=== PATIENT | male | born 1975 | race Hispanic/Latino ===

== ENCOUNTER 2017-09-07 18:36 | Inpatient (IN) | payer BC ==
[2017-09-07 19:09] LABS: #Basophils 0.1 thou/uL (0.0-0.2); #Eosinphils 0.1 thou/uL (0.0-0.7); #Monocytes 0.7 thou/uL (0.11-0.59); #Neutrophils 9.5 thou/uL (1.40-6.50); %Basophils 0.8 % (0.0-1.0); %Lymphocytes 16.1 % (21.0-51.0); %Monocytes 5.5 % (0.0-10.0); %Neutrophils 76.6 % (42.0-75.0); Hemoglobin 15.1 g/dL (14.0-18.0); Mean Corpuscular HGB CONC 33.4 g/dL (32.0-36.0); Mean Corpuscular Hemoglobin 31.5 pg (27.0-31.0); Mean Corpuscular Volume 94.2 fl (80.0-94.0); Mean Platelet Volume 8.6 fL (7.4-10.4); Platelet Count 212 thou/uL (130-400); White Blood Cell (WBC) Count 12.4 thou/uL (4.8-10.8)
[2017-09-07] MEDS ORDERED: Ondansetron HCl/PF 4 MG/2 ML Vial ONE (19:23)
[2017-09-07 19:36] LABS: ALT (SGPT) 25 U/L (8-55); AST (SGOT) 18 U/L (5-34); Albumin 4.1 g/dL (3.5-5.0); Alkaline Phosphatase 77 U/L (40-150); Anion Gap 14 mmol/L (10-20); BUN (Urea Nitrogen) 16 mg/dL (8.9-20.6); Bilirubin, Total 0.6 mg/dL (0.2-1.2); Calc. Creatinine Clearance 0 mL/min (70-130); Calcium 8.9 mg/dL (7.8-10.44); Carbon Dioxide 22 mmol/L (22-29); Chloride 108 mmol/L (98-107); Estimated GFR-MDRD 90; Globulin 3.3 g/dL (2.4-3.5); Glucose 111 mg/dL (70-105); Lipase 8 U/L (8-78); Potassium 4.1 mmol/L (3.5-5.1); Protein, Total 7.4 g/dL (6.0-8.3); Sodium 140 mmol/L (136-145)
[2017-09-07] MEDS ORDERED: Meropenem 1 GM in Sterile Water 20 ML SLOW IVP SCH (20:30)
[2017-09-07 21:25] LABS: Bilirubin Negative (Negative); Blood, Urine Negative (Negative); Clarity TURBID (Clear); Glucose, Urine (Dipstick) Negative (Negative); Leukocyte Negative (Negative); Nitrite Negative (Negative); Protein, Urine (Dipstick) Trace mg/dL (Neg-Trace); Specific Gravity, Urine 1.035 (1.002-1.036); pH, Urine 5.5 (5.0-9.0)
[2017-09-07] MEDS ORDERED: Morphine 2 MG/ML SYRINGE SLOW IVP PRN (21:47)
[2017-09-07] MEDS ORDERED: Ondansetron HCl/PF 4 MG/2 ML Vial IVP PRN ×2 (21:48→22:20)
[2017-09-07 21:53] VITALS: BMI 40.6
--- NOTE | 2017-09-07 22:13 | ULT ---
GALLBLADDER ULTRASOUND 09/07/17 COMPARISON: Reference made to 02/26/04 gallbladder ultrasound exam. CLINICAL INDICATION: Right upper abdominal pain. FINDINGS: There is increased echogenicity of the liver. Hepatic parenchyma is coarsened in echotexture although incompletely penetrated which does limit evaluation. There are foci of increased echogenicity of the gallbladder lumen. Findings indicate cholelithiasis and superimposed gallbladder sludge. Gallbladder wall is thickened at 4 mm. Pericholecystic edema is evident. Kiran's sign report is positive by the trolley operator. Common duct is dilated at 7 mm. IMPRESSION: Evidence of cholelithiasis and acute cholecystitis. Correlate with surgical consultation for further evaluation. There is prominence of the common duct. Recommend correlation with biliary laboratory values to exclu de associated biliary ductal obstruction. Incomplete assessment of the liver as discussed above. POS: Jimmie
[2017-09-07] MEDS: D5 1/2 NS w/20 mEq KCL 1,000 ML IV SCH (23:47)
--- NOTE | 2017-09-08 03:36 | HP ---
CHIEF COMPLAINT: Abdominal pain. HISTORY: Mr. Chino is a 41-year-old man. He reports epigastric abdominal pain radiating across h is right side since early this morning around 6:00. He has had nausea and vomiting as well and has h ad some hot flashes, but no documented fevers. He came to the emergency room because the pain was no t getting any better and had reached 10/10. He has not eaten anything since yesterday, since the true sea was too severe. The pain is made worse by ambulating, coughing, or taking a deep breath. PAST MEDICAL HISTORY: None. PAST SURGICAL HISTORY: Repair of a laceration on his hand. MEDICATIONS: None. No outpatient medications. ALLERGIES: No known drug allergies. PHYSICAL EXAMINATION: VITAL SIGNS: Patient is afebrile, heart rate 59, respirations 24, blood pressure 160/113, 100% satur ated on room air. GENERAL: Reveals a healthy-appearing man in discomfort. He is not toxic in appearance. He is not f lushed. He is not jaundiced or icteric. HEENT: Unremarkable. NECK: Supple without lymphadenopathy or thyroid nodules. HEART: Regular in its rate and rhythm without murmurs, rubs, or gallops. LUNGS: Clear to auscultation bilaterally. ABDOMEN: He is quite tender to palpation in the right upper quadrant greater than left upper quadran t. He does not exhibit rigidity, rebound, or guarding. No palpable masses or hernias. EXTREMITIES: Warm and well perfused without edema. NEUROLOGIC: No focal deficits. PSYCHIATRIC: Alert, oriented, and appropriate. LABORATORY AND X-RAY FINDINGS: White count is elevated at 12.4. LFTs are normal and electrolytes ar e unremarkable. Lipase is normal. Gallbladder ultrasound reveals a normal caliber bile duct, but a thickened wall of the gallbladder with pericholecystic fluid and gallstones. ASSESSMENT: Cholelithiasis and acute cholecystitis. PLAN: Patient will be admitted overnight for IV antibiotics and pain relief. He has been placed on the operating room schedule for early tomorrow morning for a laparoscopic cholecystectomy or recheck labs in the morning and if shows LFTs are elevated, cholangiogram will be recommended as well. We wi ll keep him n.p.o. His nausea is controlled, but his pain control is still suboptimal and I have ask ed his nurse to administer additional pain medication. The procedure of laparoscopic cholecystectomy was discussed with the patient and the family, inherent risks were discussed as well. These include but are not limited to bleeding, infection, risks of anesthesia, damage to nearby structures includi ng bowel, liver and bile duct, need for open operation or other surgery. He understands and accepts these risks and wishes to proceed. All of his questions were answered.
[2017-09-08] MEDS: Meropenem 1 GM in Sterile Water 20 ML SLOW IVP SCH ×2 (04:55→14:35)
[2017-09-08] MEDS: D5 1/2 NS w/20 mEq KCL 1,000 ML IV SCH ×2 (04:59→17:05)
[2017-09-08] MEDS ORDERED: Meropenem 1 GM in Sodium Chloride 0.9% 100 ML IVPB SCH (06:00)
[2017-09-08] MEDS ORDERED: PROPOFOL 200 MG/20 ML VIAL ONE (07:11)
[2017-09-08] MEDS ORDERED: Dexamethasone 20 MG/5 ML VIAL ONE (07:11)
[2017-09-08] MEDS ORDERED: Glycopyrrolate 0.2 MG/ML 5 ML SYRINGE ONE (07:11)
[2017-09-08] MEDS ORDERED: Ondansetron HCl/PF 4 MG/2 ML Vial ONE (07:11)
[2017-09-08] MEDS ORDERED: Lidocaine 1% PF 5 ML VIAL ONE (07:11)
[2017-09-08] MEDS ORDERED: Ketorolac Tromethamine 30 MG/ML VIAL ONE (07:11)
[2017-09-08 07:41] LABS: #Basophils 0.1 thou/uL (0.0-0.2); #Eosinphils 0.1 thou/uL (0.0-0.7); #Lymphocytes 1.6 thou/uL (1.20-3.40); #Monocytes 1.1 thou/uL (0.11-0.59); #Neutrophils 8.3 thou/uL (1.40-6.50); %Basophils 0.6 % (0.0-1.0); %Eosinophils 0.9 % (0.0-10.0); %Lymphocytes 14.4 % (21.0-51.0); %Monocytes 9.5 % (0.0-10.0); %Neutrophils 74.6 % (42.0-75.0); Hemoglobin 14.3 g/dL (14.0-18.0); Mean Corpuscular HGB CONC 33.3 g/dL (32.0-36.0); Mean Corpuscular Hemoglobin 31.5 pg (27.0-31.0); Mean Corpuscular Volume 94.7 fl (80.0-94.0); Mean Platelet Volume 8.7 fL (7.4-10.4); Platelet Count 192 thou/uL (130-400); RBC Distribution Width 12.2 % (11.5-14.5); Red Blood Cell (RBC) Count 4.54 mill/uL (4.70-6.10); White Blood Cell (WBC) Count 11.1 thou/uL (4.8-10.8)
[2017-09-08 08:14] LABS: ALT (SGPT) 39 U/L (8-55); AST (SGOT) 30 U/L (5-34); Alkaline Phosphatase 81 U/L (40-150); Anion Gap 11 mmol/L (10-20); BUN (Urea Nitrogen) 12 mg/dL (8.9-20.6); Bilirubin, Total 1.2 mg/dL (0.2-1.2); Calc. Creatinine Clearance 183 mL/min (70-130); Calcium 9.1 mg/dL (7.8-10.44); Carbon Dioxide 26 mmol/L (22-29); Chloride 104 mmol/L (98-107); Estimated GFR-MDRD 89; Globulin 3.1 g/dL (2.4-3.5); Glucose 135 mg/dL (70-105); Lipase 11 U/L (8-78); Potassium 4.2 mmol/L (3.5-5.1); Protein, Total 7.1 g/dL (6.0-8.3); Sodium 137 mmol/L (136-145)
--- NOTE | 2017-09-08 10:11 | PRG ---
DATE OF SERVICE: 09/08/2017 SUBJECTIVE: Mr. Chino is still hurting quite a bit this morning. His nausea is better. OBJECTIVE: He has been afebrile. Vital signs are normal. LABORATORY DATA: White count is still a little elevated at 11. LFTs are still normal. He is still very tender in the upper abdomen, more on the right than the left. ASSESSMENT: Acute cholecystitis. No evidence of bile duct obstruction on lab work, but his bile hemanth t was slightly enlarged on his ultrasound. So, we will proceed with laparoscopic cholecystectomy wit h intraoperative cholangiogram today. He is on scheduled antibiotics, which we will continue periope ratively.
[2017-09-08] MEDS ORDERED: Iothalamate Meglumine 60% 50 ML VIAL FS ONE (13:26)
[2017-09-08] MEDS ORDERED: Bupivacaine/Epinephrine 0.25% 30 ML VIAL ONE (13:26)
[2017-09-08] MEDS ORDERED: HYDROmorphone 0.5 MG/0.5 ML SYRINGE ONE (13:27)
[2017-09-08] MEDS ORDERED: Fentanyl 250 MCG/5 ML VIAL ONE (13:27)
[2017-09-08] MEDS ORDERED: Meropenem 1 GM in Sterile Water 20 ML SLOW IVP SCH (14:00)
[2017-09-08] MEDS ORDERED: Promethazine HCl 25 MG/ML VIAL SLOW IVP PRN (16:01)
[2017-09-08] MEDS ORDERED: Ondansetron HCl/PF 4 MG/2 ML Vial IVP PRN (16:01)
[2017-09-08] MEDS ORDERED: HYDROmorphone 2 MG/ML VIAL SLOW IVP PRN (16:01)
[2017-09-08] MEDS ORDERED: Promethazine HCl 25 MG/ML VIAL IM PRN (16:01)
[2017-09-08] MEDS ORDERED: HYDROcodone/Acetaminophen 7.5/325 mg Tablet PO PRN ×2 (16:18)
[2017-09-08] MEDS ORDERED: Promethazine 25 MG TAB PO PRN ×2 (16:18→16:19)
[2017-09-08 19:56] VITALS: BP 142/78; TEMP 97.3
--- NOTE | 2017-09-08 22:26 | RAD ---
INTRAOPERATIVE CHOLANGIOGRAM 09/08/17 HISTORY: Right upper quadrant pain and findings suggestive of acute cholecystitis on ultrasound. Cholecystecto my. FINDINGS: Two intraoperative fluoroscopic images of the right upper quadrant are submitted for interpretation. Surgical instruments overlie the right upper quadrant. The cystic duct is cannulated. However, there is contrast extravasation at level of cannulation of the cystic duct. The visualized common duct is n ormal in caliber and no definitive filling defect is seen. There is evidence of free spill of contras t into the duodenum. Intrahepatic ducts are not opacified on this exam. IMPRESSION: 1. Normal caliber common duct without a definite filling defect visualized. Free spill of contra st seen into the duodenum. 2. Extravasation of contrast at site of cystic duct. 3. Correlation with intraoperative findings is recommended. POS: CARLOTTA
--- NOTE | 2017-09-10 14:25 | DIS ---
DATE OF ADMISSION: 09/07/2017 DATE OF DISCHARGE: 09/08/2017 FINAL DIAGNOSES: Cholelithiasis and cholecystitis. PROCEDURES: Laparoscopic cholecystectomy with intraoperative cholangiogram on 09/08/2017. HISTORY: Mr. Chino is a 41-year-old man who came to the emergency room with intractable upper abdominal pain. He was found to have evidence of cholelithiasis and cholecystitis on examination in ultrasound and a mildly dilated common bile duct. Recommendation was made to proceed with laparoscopic cholecystectomy with intraoperative cholangiogram. He was admitted and placed on antibiotics and taken in the next day for this procedure, which was uneventful. He had evidence of severe cholecystitis, but a cholangiogram was normal and postoperatively, he recovered rapidly and was able to be discharged home the same day after meeting discharge criteria. DISCHARGE MEDICATIONS: Include tramadol, Phenergan, Colrain 7.5 for p.r.n. use and a course of Augmentin due to the severe cholecystitis. He is to return to [facility] 2 weeks' time for postoperative checkup. He was instructed to avoid fried, greasy, and fatty food. He was instructed to avoid lifting more than 20 pounds for 2 weeks' time. CARIDAD
--- NOTE | 2017-09-10 14:25 | OP ---
PROCEDURE: Laparoscopic cholecystectomy with intraoperative cholangiogram. PREOPERATIVE DIAGNOSIS: Acute cholecystitis. POSTOPERATIVE DIAGNOSIS: Acute gangrenous cholecystitis. HISTORY: Mr. Chino is a 41-year-old man, who presented to the emergency room with acute onset of severe epigastric and right upper quadrant pain. He was very tender in this area and an ultrasound revealed stones in the gallbladder and prominent bile duct, although his LFTs were normal. It was felt that he likely had cholecystitis based on exam and recommendation was made for urgent cholecystectomy, with cholangiogram due to bile duct dilation. On the following morning, he was taken to the operating room for this. PROCEDURE IN DETAIL: After informed consent was obtained and appropriate preoperative antibiotics continued, the patient was taken to the operating room. He was placed in supine position and general endotracheal anesthesia was administered. He was prepped and draped in a standard sterile fashion and local anesthesia infused to the skin and subcutaneous tissues at the level of the umbilicus. A transverse skin incision was made. The fascia was elevated and a Veress needle placed into the abdominal cavity. Carbon dioxide gas was insufflated to an intra-abdominal pressure of 15, which the patient tolerated well. Opening pressure was under 5. The Veress needle was withdrawn and a ClearView port advanced under direct laparoscopic vision into the abdominal cavity, which was carefully examined. There was no evidence of Veress needle or of trocar injury. Local anesthesia was infused to the skin and subcutaneous tissues at the epigastric, right upper quadrant, and right lateral abdominal sites. Skin incisions were made and trocars were placed under direct vision of the laparoscope. The gallbladder was noted to be extremely edematous and somewhat discolored in appearance consistent with gangrenous cholecystitis and had to be aspirated in order to grasp it, following which the fundus was grasped and retracted superiorly. The infundibulum was identified, grasped, and retracted laterally and the serosa stripped inferiorly at the level of the neck of the gallbladder. The cystic duct and artery were dissected free circumferentially and clearly traced to their insertion in the gallbladder. This was done with some difficulty due to fibrosis and edema at the level of the neck of the gallbladder. The cystic artery was clipped, but not divided. The cystic duct was clipped at the level of the neck of the gallbladder and an incision made inferior to this. A cholangiogram was placed into the cystic duct and secured with a clip and a cholangiogram obtained. This showed an adequate length of cystic duct and normal filling of the distal common bile duct with free flow into the duodenum without filling defects. There was retrograde filling of the common hepatic duct which was also without filling defects. There was some leakage around the clip in the cystic duct, but the bile duct system was adequately visualized using real time fluoroscopy. The cystic duct clip and the cholangiogram catheter were removed and the duct clipped inferior to the incision and divided between these clips and the upper clip. The cystic artery was divided between clips and the gallbladder dissected free of the gallbladder bed. Due to the gangrenous nature of the gallbladder, during this process of dissection of the gallbladder off the gallbladder bed, the gallbladder did tear and several stones were seen to extrude from the gallbladder; however, these were able to be successfully retrieved and removed as well as the remaining bile which was spilled out of the gallbladder. The gallbladder was completely dissected free of the gallbladder bed, placed into an EndoCatch bag and drawn out through the epigastric trocar site. The epigastric trocar was replaced and the operative site irrigated and multiple oozing points from the raw liver bed where the gallbladder had torn off of the gallbladder bed were controlled using electrocautery. The cystic duct and artery stumps were examined and the clips were in good position across these structures. No additional spilled stones were visible. The operative site was easily irrigated to clear and no active bleeding seen. However, due to the raw liver where the gallbladder had torn off of the gallbladder bed, Kimberly was applied to the operative site as a precaution for postoperative hemostasis. The epigastric trocar was removed and the fascia closed under direct laparoscopic vision with a 0 Vicryl suture on a GraNee needle with excellent technical result. The right upper quadrant and right lateral trocars were removed and hemostasis verified. Carbon dioxide gas was allowed to desufflate through the umbilical trocar, which was then removed. Skin incisions were closed with 4-0 subcuticular Monocryl suture and Dermabond dressings were placed. The patient was extubated and taken to the recovery room in good condition. Estimated blood loss was minimal. There were no complications. SPECIMEN: Gallbladder and contents. MTDD
== END 2017-09-08 20:06 | disposition home or self-care (01) | DRG 419 ==
LOC: ERS 18:36 → SURG A 19:50
PROVIDERS: ADMIT Surgery; ATTEND Surgery
PROC: 0FT44ZZ Resection of Gallbladder, Percutaneous Endoscopic Approach (ICD-10-PCS; principal; 2017-09-08)
PROC: BF101ZZ Fluoroscopy of Bile Ducts using Low Osmolar Contrast (ICD-10-PCS; 2017-09-08)
DX: K80.00 Calculus of gallbladder with acute cholecystitis without obstruction (principal)
CPT/HCPCS: 36415; 47532; 76705; 80053; 81003; 83690; 85025; 88304; 96374; 96375; 96376; A4216; J1100; J1170; J1610; J1885; J2001; J2185; J2270; J2405; J2704; J3010; J7050; Q9961